=== PATIENT | male | born 1945 | race Caucasian/White ===

== ENCOUNTER 2023-01-17 08:57 | Emergency (ER) | payer OTHER ==
[~2023-01-17] VITALS: Ht 157.5 cm; Wt 69.9 kg
[2023-01-17] MEDS ORDERED: PNEU16DI2 (09:22)
[2023-01-17] MEDS ORDERED: GLUMETZA1000 MG PO (09:22)
[2023-01-17] MEDS ORDERED: COZAAR50 MG PO (09:22)
[2023-01-17] MEDS ORDERED: NORFLEX100MG PO (16:02)
[2023-01-17] MEDS ORDERED: KETO10TA2 PO (16:02)
== END 2023-01-17 16:11 | disposition home or self-care (01) ==
LOC: ER 08:57
DX: M62.830 Muscle spasm of back (principal); M54.2 Cervicalgia; E11.9 Type 2 diabetes mellitus without complications; Z79.84 Long term (current) use of oral hypoglycemic drugs; I10 Essential (primary) hypertension
CPT/HCPCS: 72040; 96372; 99284; J1885; J2360